=== PATIENT | female | born 1995 | race Caucasian/White ===

== ENCOUNTER 2017-07-30 17:25 | Day surgery (SDC) | payer OTHER ==
[~2017-07-30] VITALS: Ht 167.6 cm; Wt 57.1 kg
[~2017-07-30 17:25] MED LIST: MEDROXYPRO150 MG/1 M; MOTRIN600 MG PO; NAPROSYN500 MG PO; NAPROXEN500 MG PO; NOHOMEMEDS; PEPCID20 MG PO; PERCOCET 5/31 TABLET PO; PREDNISONE20 MG PO; Percocet 5/325,Endoc PO; TYLENOL WITH C1 EACH PO; VENTOLIN HFA18 GM IH; VICODIN 5-3001 EACH PO; Vibramycin, Doryx PO; ZOFRAN ODT4 MG PO
[2017-07-30 18:43] LABS: EOSINOPHIL (%) 3.8 % (0-5); EOSINOPHIL COUNT 0.4 K/uL (0-0.3); HEMATOCRIT 38.8 % (36.0-46.0); IMMATURE GRANULOCYTE (%) 0.3 % (0.0-0.7); INSTRUMENT ABS NEUTROPHIL CT 5.4 K/uL; LYMPHOCYTE COUNT 3.6 K/uL (1.0-2.8); MCH 30.3 PG (29.0-34.0); MCV 89.2 FL (83-99); MEAN PLAT.VOLUME 10.6 uM^3 (9.5-12.4); MONOCYTE (%) 7.5 % (3-12); MONOCYTE COUNT 0.8 K/uL (0-0.8); NEUTROPHIL (%) 52.9 % (45-76); NEUTROPHIL COUNT 5.4 K/uL (1.8-6.4); PLATELET COUNT 230 K/uL (156-360); RBC DIS.WIDTH-CV 11.9 % (11.8-14.6); RBC DIS.WIDTH-SD 38.5 % (39-53); RED BLOOD COUNT 4.35 M/uL (3.80-5.20); WHITE BLOOD COUNT 10.3 K/uL (4.1-10.2)
[2017-07-30 18:50] LABS: PROTHROMBIN TIME 11.5 SEC (10.2-12.9)
[2017-07-30 18:57] LABS: CHLORIDE 107 mEq/L (99-109); SODIUM 138 mEq/L (136-147)
[2017-07-30 18:59] LABS: GLUCOSE 81 mg/dL (70-99)
[2017-07-30 19:00] LABS: ANION GAP 13 MEQ/L (2-14)
[2017-07-30 19:03] LABS: GFR ESTIMATE (CALCULATED) > 59 mL/min/; UREA NITROGEN (BUN) 14 mg/dL (9-23)
[2017-07-30 19:11] LABS: QUANTITATIVE HCG 2123.7 MIU/ML
[2017-07-30 20:39] LABS: POINT-OF-CARE METER ID UU13113702
[2017-07-30 22:56] VITALS: BP 137/65
[2017-07-31 03:40] VITALS: BP 95/50
[2017-07-31 04:00] VITALS: BP 100/78
[2017-07-31 05:45] VITALS: BP 110/69
[2017-07-31 06:15] LABS: EOSINOPHIL (%) 0 % (0-5); HEMATOCRIT 33.8 % (36.0-46.0); IMMATURE GRANULOCYTE (%) 0.4 % (0.0-0.7); INSTRUMENT ABS NEUTROPHIL CT 8.7 K/uL; LYMPHOCYTE COUNT 1.1 K/uL (1.0-2.8); MCH 30.1 PG (29.0-34.0); MCHC 34.3 G/DL (30.0-36.0); MCV 87.6 FL (83-99); MEAN PLAT.VOLUME 10.7 uM^3 (9.5-12.4); MONOCYTE (%) 1.6 % (3-12); MONOCYTE COUNT 0.2 K/uL (0-0.8); NEUTROPHIL (%) 87.1 % (45-76); NEUTROPHIL COUNT 8.7 K/uL (1.8-6.4); PLATELET COUNT 217 K/uL (156-360); RBC DIS.WIDTH-CV 11.8 % (11.8-14.6); RBC DIS.WIDTH-SD 37.9 % (39-53); RED BLOOD COUNT 3.86 M/uL (3.80-5.20)
[2017-07-31 07:50] VITALS: BP 96/53
[2017-07-31] MEDS ORDERED: MOTRIN800 MG PO (08:26)
[2017-07-31] MEDS ORDERED: ROXICODONE5 MG PO (08:26)
[2017-07-31] MEDS ORDERED: FEOSOL325 MG PO (08:26)
== END 2017-07-31 09:15 | disposition home or self-care (01) ==
LOC: EME 17:25 → SDC 20:24 → 2EAST 20:25 → 2SOUTH 20:25 → ENRESERV 20:27 → 2EAST 23:00
PROVIDERS: Emergency Medicine; Obstetrics & Gynecology
DX: O00.10 Tubal pregnancy without intrauterine pregnancy (principal); N83.202 Unspecified ovarian cyst, left side; K66.1 Hemoperitoneum; F17.210 Nicotine dependence, cigarettes, uncomplicated; F12.90 Cannabis use, unspecified, uncomplicated
CPT/HCPCS: 80048; 82948; 84702; 85025; 85610; 86850; 86900; 86901; 88305; 99281; 99285; G0378; J0690; J1170; J1885; J2175; J2250; J2405; J3010; J7030; J7120; S0020

== ENCOUNTER → 2017-07-31 | Outpatient (CLI) | payer OTHER ==
[~2017-07-31] VITALS: Ht 162.6 cm; Wt 55.5 kg
[~2017-07-31] MED LIST changes: +FEOSOL325 MG PO; +MOTRIN800 MG PO; +ROXICODONE5 MG PO
[2017-07-31 15:01] VITALS: BP 110/58
== END | disposition home or self-care (01) ==
LOC: IVINF 14:48
DX: Z31.82 Encounter for Rh incompatibility status (principal); O00.90 Unspecified ectopic pregnancy without intrauterine pregnancy
CPT/HCPCS: 96372; J2790